=== PATIENT | female | born 1975 | race Caucasian/White ===

== ENCOUNTER 2024-12-10 22:00 | HOS | payer OTHER, MEDICARE, SELFPAY ==
--- OUTSIDE RECORDS SUMMARY | 2024-12-10 21:52 | XMS_ITS | Encounter Summary ---
Author Organization [employer] Address 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 Gender Identity Not on file Sexual Orientation Not on file documented as of this encounter Plan of Treatment Not on file documented as of this encounter Procedures Procedure Name Priority Date/Time Associated Diagnosis Comments BLOOD GAS CORD VENOUS Routine 01/13/2005 3:34 PM CDT BLOOD GAS CORD ARTERIAL Routine 01/13/2005 3:34 PM CDT HEPATITIS B SURFACE ANTIGEN Routine 01/13/2005 1:03 PM CDT CBC WITH DIFFERENTIAL Routine 01/13/2005 8:45 AM CDT CBC WITH DIFFERENTIAL Routine 01/13/2005 8:45 AM CDT URINALYSIS W/REFLEX MICROSCOPIC Routine 01/13/2005 6:50 AM CDT documented in this encounter Results * (ABNORMAL) BLOOD GAS CORD VENOUS (01/13/2005 3:34 PM CDT) PH CORD VENOUS 7.37 7.23 - 7.46 INTERFACE SYSTEM PCO2 CORD VENOUS 36 28 - 57 mm Hg INTERFACE SYSTEM PO2 CORD VENOUS 43(H) 15 - 42 mm Hg INTERFACE SYSTEM SO2 CORD VISHAL 93(H) 14 - 75 % INTERFA CE SYSTEM FO2HB CORD VENOUS 90(L) 94 - 98 % INTERFACE SYSTEM HCO3 CORD VENOUS 20 17 - 25 mmol/L INTERFACE SYSTEM BASE EXCESS CORD VENOUS -4.1 -5.8 - 0.7 mmol/L INTERFACE SYSTEM HEMOGLOBIN CORD VENOUS 14.9 14.5 - 22.5 g/dL INTERFACE SYSTEM 01/13/2005 3:34 PM CDT Historical Provider ABG ORDERABLES Final Result INTERFACE SYSTEM Refer to clinic/hospital department * (ABNORMAL) BLOOD GAS CORD ARTERIAL (01/13/2005 3:34 PM CDT) PH CORD ARTERIAL 7.34 7.14 - 7.40 INTERFACE SYSTEM PCO2 CORD ARTERIAL 43 32 - 69 mm Hg INTERFACE SYSTEM PO2 CORD ARTERIAL 34(H) 8 - 33 mm Hg INTERFACE SYSTEM SO2 CORD ARTERIAL 77(H) 5 - 59 % INTERFACE SYSTEM FO2HB CORD ARTERIAL 75(L) 94 - 98 % INTERFACE SYSTEM HCO3 CORD ARTERIAL 22 16 - 27 mmol/L INTERFACE SYSTEM BASE EXCESS CORD ARTERIAL -3.4 -7.6 - 1.3 mmol/L INTERFACE SYSTEM HEMOGLOBIN CORD ARTERIAL 15.3 14.5 - 22.5 g/dL INTERFACE SYSTEM 01/13/2005 3:34 PM CDT us Historical Provider ABG ORDERABLES Final Result INTERFACE SYSTEM Refer to clinic/hospital department * HEPATITIS B SURFACE ANTIGEN (01/13/2005 1:03 PM CDT) HEPATITIS B SURFACE AG Nonreactive Nonreactive INTERFACE SYSTEM Comment: Performed by [facility]. Results called to Penny at 01/13/2005 3:02 PM and read back verified. 01/13/2005 1:03 PM CDT Historical Provider CHEMISTRY ORDERABLES Final R esult Performing Organization Address City/State/[facility] Co de Phone Number INTERFACE SYSTEM Refer to clinic/hospital department * (ABNORMAL) CBC WITH DIFFERENTIAL (01/13/2005 8:45 AM CDT) NEUTROPHIL ABSOLUTE 9.84(H) 1.90 - 7.00 K/uL INTERFACE SYSTEM LYMPHOCYTE ABSOLUTE 0.75 0.70 - 4.50 K/uL INTERFACE SYSTEM MONOCYTE ABSOLUTE 0.00(L) 0.10 - 1.30 K/uL INTERFACE SYSTEM EOSINOPHIL ABSOLUTE 0.00 0.00 - 0.70 K/uL INTERFACE SYSTEM BASOPHILS ABSOLUTE 0.11 0.00 - 0.20 K/uL INTERFACE SYSTEM NEUTROPHILS, SEG 89(H) 45 - 70 % INT ERFACE SYSTEM BANDS 3 0 - 5 % INTERFACE SYSTEM LYMPHOCYTES 6(L) 16 - 45 % INTERFAC E SYSTEM MONOCYTES 0(L) 3 - 13 % INTERFACE SYSTEM EOSINOPHILS 0 0 - 7 % INTERFAC E SYSTEM BASOPHILS 1 0 - 2 % INTERFACE SYSTEM ATYPICAL LYMPHOCYTE 1 0 - 5 % INTERFACE SYSTEM PLATELET EST. Normal Normal INTERF DEBORAH SYSTEM RBC MORPHOLOGY Normal Normal INTER FACE SYSTEM 01/13/2005 8:45 AM CDT Historical Provider HEMATOLOGY ORDERABLES Final Result Performing Organization Address [facility] Phone Number INTERFACE SYSTEM Refer to clinic/hospital department * (ABNORMAL) CBC WITH DIFFERENTIAL (01/13/2005 8:45 AM CDT) WBC 10.7(H) 4.0 - 9.8 K/uL INTERFACE SYSTEM RBC 3.53(L) 3.90 - 4.90 M/uL INTERFACE SYSTEM HEMOGLOBIN 11.1(L) 11.8 - 14.8 g/dL INTERFACE SYSTEM HEMATOCRIT 33.1(L) 35.5 - 44.0 % INTERFACE SYSTEM MCV 93.8 82.0 - 99.0 fL INTERFACE SYSTEM MCH 31.4 27.2 - 32.6 pg INTERFACE SYSTEM MCHC 33.5 31.5 - 35.5 % INTERFACE SYSTEM RDW 13.4 11.5 - 14.5 % INTERFACE SYSTEM RDW-STDEV 45.6 37.1 - 48.7 fL INTERFACE SYSTEM PLATELETS 236 140 - 350 K/uL INTERFACE SYSTEM MPV 9.9 9.3 - 12.4 fL INTERFACE SYSTEM 01/13/2005 8:45 AM CDT us Historical Provider HEMATOLOGY ORDERABLES Final Result Performing Organization Address City/[facility] Phone Number INTERFACE SYSTEM Refer to clinic/hospital department * URINALYSIS (01/13/2005 6:50 AM CDT) COLOR UA Yellow INTERFACE SYSTEM CLARITY UA Clear Clear INTERFACE SYSTEM SPECIFIC GRAVITY UA 1.020 1.001 - 1.035 INTERFACE SYSTEM PH UA 7.0 5.0 - 8.0 INTERFACE SYSTEM LEUKOCYTE ESTERASE UA Negative Negative INTERFACE SYSTEM NITRITE UA Negative Negative INTERFACE SYSTEM PROTEIN UA Negative Negative INTERFACE SYSTEM GLUCOSE UA Negative Negative INTERFACE SYSTEM KETONES UA Negative Negative INTERFACE SYSTEM UROBILINOGEN UA <1 <1 EU INTE RFACE SYSTEM BILIRUBIN UA Negative Negative INTERFA CE SYSTEM BLOOD UA Negative Negative INTERFACE SYSTEM 01/13/2005 6:50 AM CDT us Historical Provider URINE ORDERABLES Final Resul t Performing Organization Address City/[facility] Phone Number INTERFACE SYSTEM Refer to clinic/hospital department documented in this encounter Visit Diagnoses Diagnosis Premature rupture of membranes in , delivered- Primary documented in this encounter
--- OUTSIDE RECORDS SUMMARY | 2024-12-10 21:52 | XMS_ITS | Clinical Summary ---
Author Organization [facility] Address [address] [facility] Attn: Epic Prelude ADT ANNETTE TIJERINA [address] Care Team Providers Care Milk Delivery Driver Name Role Phone Unavailable Primary Care Provider Unavailabl e Allergies Active Allergy Reactions Criticality Noted Date Comments Cefaclor Rash Low 02/29/2016 Medications melatonin 5 mg Tablet Take 5 mg by mouth 1 time daily as needed. Active loperamide (IMODIUM) 2 mg Tablet Take 2 mg by mouth. Active clonazePAM (KlonoPIN) 1 mg tablet Take 1 mg by mouth. Active venlafaxine HCl (EFFEXOR XR ORAL) Take 187.5 mg by mouth daily. Active diphenhydramine HCl (BENADRYL ORAL) Take 50 mg by mouth every 6 hours as needed. 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 Gender Identity Not on file Sexual Orientation Not on file Last Filed Vital Signs Vital Sign Reading Time Taken Comments Blood Pressure 117/72 02/29/2016 5:17 PM CDT Pulse - - Temperature 36.6 C (97.8 F) 02/29/2016 5:17 PM CDT Respiratory Rate 18 02/29/2016 5:17 PM CDT Oxygen Saturation - - Inhaled Oxygen Concentration - - Weight 73 kg (161 lb) 02/29/2016 5:17 PM CDT Height 165.1 cm (5' 5 ) 02/29/2016 5:17 PM CDT Body Mass Index 26.79 02/29/2016 5:17 PM CDT Plan of Treatment Health Maintenance Due Date Last Done Comments DTAP/TDAP/TD VACCINES (1 - Tdap) 1995 HEPATITIS B VACCINES (1 of 3 - 19+ 3-dose series) 06/17 HPV/Cotest (21-29) 1997 CERVICAL CANCER SCREENING 2006 HPV/Cotest (30-65) 2006 PAP SMEAR 2006 BREAST CANCER SCREENING 2016 COLORECTAL SCREENING 2021 Colorectal Cancer Screening 2021 FIT-DNA Q 3 years 2021 FIT/FOBT Q 1 year 2021 Flex Sig/CT Colonography Q 5 years 2021 INFLUENZA VACCINE (#1) 2024
--- OUTSIDE RECORDS SUMMARY | 2024-12-10 21:52 | XMS_ITS | Clinical Summary ---
Author Organization [facility] Address [address] [place] [address] Care Team Providers Care Stuffed Casing Tier Name Role Phone Denise Kamara MD Primary Care Provider [phone] Gino Dacosta MD Unavailable Allergies Active Allergy Reactions Criticality Noted Date Comments Cefaclor Rash Medium 02/29/2016 Reaction: RASH, Medications amLODIPine (NORVASC) 5 mg tabletIndications :hypertension Take 1 tablet (5 mg total) by mouth nightly 0 9 Active venlafaxine XR (EFFEXOR-XR) 150 mg 24 hr capsuleIndication s:Anxiety with Depression Take 2 capsules (300 mg total) by mouth every morning 2 9 Active traZODone (DESYREL) 150 mg tabletIndications :insomnia associated with depression Take 1 tablet (150 mg total) by mouth nightly 1 Active acetaminophen 500 mg capsule Take 2 capsules (1,000 mg total) by mouth every 6 (six) hours 30 tablet 2 Active Additional Information Patient taking differently:1,000 mg oral Every 6 hours scheduled,Indications: Pain, Informant: Self, Reported on 03/31/2024 prochlorperazine (Compazine) 10 mg tabletIndications :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,Secondary malignant neoplasm of brain (HCC) Take 1 tablet (10 mg total) by mouth every 6 (six) hours as needed for nausea or vomiting Use first for nausea 120 tablet 3 2 Active clonazePAM (KlonoPIN) 0.5 mg tabletIndications :sleep Take 1 tablet (0.5 mg total) by mouth nightly as needed (sleep) 2 Active methylphenidate HCl (RITALIN) 10 mg tabletIndications :Attention-Defici t Hyperactivity Disorder Take 3 tablets (30 mg total) by mouth 2 (two) times a day 3 Active capecitabine (XELODA) 500 mg tabletIndications :metastatic breast carcinoma Take 3 tablets (1,500 mg) by mouth 2 (two) times a day Indications: metastatic breast carcinoma. Take for 7 days, hold for 7 days and repeat. 84 tablet 11 4 Active mirtazapine (REMERON) 7.5 mg tabletIndications :major depressive disorder Take 1 tablet (7.5 mg total) by mouth nightly at bedtime. 4 Active melatonin 5 mg tabletIndications :sleep Take 1 tablet (5 mg total) by mouth nightly Active famotidine (PEPCID) 20 mg tabletIndications :Prevention of Stress Ulcer Take 1 tablet (20 mg total) by mouth 2 (two) times a day 60 tablet 11 4 025 Active senna-docusate (PERICOLACE) 8.6-50 mg Take 1 tablet by mouth daily 60 tablet 4 Active oxyCODONE (ROXICODONE) 5 mg immediate release tabletIndications :Pain Take 1 tablet (5 mg total) by mouth every 4 (four) hours as needed for pain 28 tablet 4 Active Active Problems Problem Noted Date Diagnosed Date Malignant neoplasm of overla pping sites of right female breast 08/12/2022 Malignant neoplasm metastatic to brain 2 Cerebellar mass 07/14/2022 Malignant neoplasm of overla pping sites of right female breast 10/02/2021 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 Symptoms have been stable over this time. Based on lack of progression and negative serological workup, it is very unlikely that this represents vasculitis. Immunosuppression in this patient with cancer should be avoided unless absolutely necessary. -Will monitor for progression on follow up CT scheduled for July -Could consider vascular surgery consult if symptoms of post-prandial nausea and abdominal pain become bothersome. The patient is not desiring invasive procedures at this time. Secondary malignant neoplasm of brain 05/11/2019 Chemotherapy management, encounter for 6 Primary malignant neoplasm of breast with metast asis 02/25/2016 Resolved Problems Problem Noted Date Diagnosed Date Resolved Date Renal artery stenosis 06/04/20212020 Immunizations Immunization Administration Dates Next Due Pfizer SARS-CoV-2 Monovalent Vaccination (12+ Yrs) PURPLE 03/21/2021,02/27/2021 Surgical History Surgery Date Site/Laterality Comments CHOLECYSTECTOMY 08/17/2006 - 08/16/2007 BRAIN SURGERY KNEE SURGERY 1993, 1994, 1995 Left TONSILECTOMY, ADENOIDECTOMY, BILATERAL MYRINGOTOMY AND TUBES 08/17/1984 - 08/16/1985 N/A PORTACATH PLACEMENT 01/16/2016 - 02/14/2016 Right MASTECTOMY Bilateral Medical History Medical History Date Comments Breast cancer (HCC) Hypertension Brain cancer (HCC) brain metasta ses Anxiety Depression Arthritis Family History Medical History Relation Name Comments Heart disease Father Hypertension Father Prostate cancer Father Family histo ry of malignant neoplasm of prostate - (Added by TW Conv) Cancer Maternal Grandmother Hypertension Maternal Grandmother Deep vein thrombosis Mother Hypertension Mother Stroke Paternal Grandfather Anesthesia problems Neg Hx Relation Name Status Comments Father Maternal Grandmother Mother Paternal Grandfather Social History Tobacco Use Types Packs/Day Years Used Date Smoking Tobacco: Every Day Cigarettes 0.4 33.3 Started: 1991 Smokeless Tobacco: Never Tobacco Cessation:Ready to Q uit: Not Asked; Counseling Given: Yes Alcohol Use Standard Drinks/Week Comments Never 0 (1 standard drink = 0.6 oz pur e alcohol) AUDIT-C Answer Date Recorded Q1: How often do you have a drink containing alcohol? Never 04/05/2024 Q2: How many drinks containi ng alcohol do you have on a typical day when you are drinking? Patient does not drink Q3: How often do you have si x or more drinks on one occasion? Never 04/05/2024 Personal Safety Answer Date Recorded Have you ever been in or are you currently in a harmful physical or emotional relationship or is someone making you feel afraid or unsafe? 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 Gender Identity Female 05/11/2023 10:02 AM CDT Sexual Orientation Not on file Obstetrics History Last Filed Vital Signs Vital Sign Reading Time Taken Comments Blood Pressure 118/73 04/06/2024 9:00 AM CDT Pulse 71 04/06/2024 9:00 AM CDT Temperature 36.6 C (97.9 F) 04/06/2024 2:01 PM CDT Respiratory Rate 19 04/06/2024 9:00 AM CDT Oxygen Saturation 97% 04/06/2024 9:00 AM CDT Inhaled Oxygen Concentration - - Weight 79 kg (174 lb 2.6 oz) 04/05/2024 3:50 PM CDT Height 163.8 cm (5' 4.5 ) 04/05/2024 3:50 PM CDT Body Mass Index 29.43 04/05/2024 3:50 PM CDT Plan of Treatment Health Maintenance Due Date Last Done Comments Breast Cancer Screening-Mammogram 1976 Cervical Cancer Screening 1976 Colon Cancer Screening-Colonoscopy 1976 Depression Screening 1976 Hepatitis C Screening 1976 DTaP/Tdap/Td Vaccine (1 - Tdap) 1987 Hepatitis B Screening 1994 Regular Well Visit/Exam 18-64 1994 Pneumococcal vaccine <65 (1 of 2 - PCV) 1995 Zoster Vaccine (1 of 2) 1995 Covid-19 Vaccine (3 - Pfizer risk series) 04/18/2021 03/21/2021, 02/27/2021 Influenza Vaccine (#1) 2024 Medical Devices Implanted Type Area Counter Pocket Sewer Device Identifier Shelf Expiration Date Model / Serial / Lot Vascular Access Power Port Implanted:Qty: 1 Right: Chest Wall Insurance MEDICARE MEDICARE [employer] MANAGED MEDICARE GENERIC RISK OTHER [employer] [place] MEDICARE Advance Directives For more information, please contact: [phone] * Full Code (Latest Code Status on File) Date Activated Date Inactivated Comments 07/14/2022 11:11 AM 07/15/2022 9:41 PM Care Teams Stuffed Casing Tier Relationship Specialty Start Date End Date Denise Kamara MD PCP - General 10/01/16 Gino Dacosta MD [address] [facility] [address] [place] [address] Radiation Oncologist Radiation Oncology 12/09/22
--- OUTSIDE RECORDS SUMMARY | 2024-12-10 21:52 | XMS_ITS | Encounter Summary ---
Author Organization [facility] Healthcare Address [address] [place] [address] Care Team Providers Care Field Crew Chief Name Role Phone Denise Kamara MD Primary Care Provider [phone] Jennifer Magdaleno RN Unavailable Jennifer Magdaleno RN Unavailable Gino Dacosta MD Unavailable Jennifer Magdaleno RN Unavailable Gaviota Miranda RN Unavailable [phone] Encounter Details Date Type Department Care Team (Late st Contact Info) Description 12/24/2021 Telephone [facility] Radiology [address] [place], [place] [id number] Josemanuel Romeo MD PhD [address] [facility] [address] [place] [address] Social History Tobacco Use Types Packs/Day Years Used Date Smoking Tobacco: Every Day Cigarettes 0.5 33.3 Started: 1991 Smokeless Tobacco: Never Alcohol Use Standard Drinks/Week Comments Never 0 (1 standard drink = 0.6 oz pur e alcohol) AUDIT-C Answer Date Recorded Q1: How often do you have a drink containing alc ohol? Monthly or less 08/20/2021 Q2: How many drinks containi ng alcohol do you have on a typical day when you are drinking? 1 or 2 08/20/2021 Q3: How often do you have si x or more drinks on one occasion? 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 Gender Identity Female 05/11/2023 10:02 AM CDT Sexual Orientation Not on file documented as of this encounter Plan of Treatment Not on file documented as of this encounter Visit Diagnoses Not on filedocumented in this encounter Care Teams Field Crew Chief Relationship Specialty Start Date End Date Denise Kamara MD PCP - General 10/01/16 Jennifer Magdaleno RN [address] [place] [address] Nurse Navigator 12/27/21 02/09/22 Jennifer Magdaleno RN [address] [place] [address] Nurse Navigator 06/19/22 08/22/22 Gino Dacosta MD [address] [facility] [address] [place] [address] Radiation Oncologist Radiation Oncology 12/09/22 Jennifer Magdaleno RN [address] [place] [address] Nurse Navigator 03/28/24 05/01/24 Gaviota Miranda RN [address] [place] [address] Nurse Navigator 03/28/24 03/31/24 documented as of this encounter
--- OUTSIDE RECORDS SUMMARY | 2024-12-10 21:52 | XMS_ITS | Clinical Summary ---
Author Organization [facility] Address [address] [place] [address] Care Team Providers Care Fish Smoker Name Role Phone Unavailable Primary Care Provider Unavailabl e Social History Tobacco Use Types Packs/Day Years Used Date Smoking Tobacco: Never Assessed Comments Unknown Sex and Gender Information Value Date Recorded Sex Assigned at Not on file Legal Sex Female 3:55 PM CDT Gender Identity Not on file Sexual Orientation Not on file Plan of Treatment Health Maintenance Due Date Last Done Comments Cervical Cancer Screening Pa p Smear (Age 30 to 64) Every 3 Years 1976 Colorectal Cancer Screening Colonoscopy (10 Years) 1976 Annual Physical 1979 Hepatitis C 1994 DTaP, Tdap and Td Vaccines ( 1 - Tdap) 1995 Hepatitis B Vaccines (1 of 3 - 19+ 3-dose series) 1995 Cervical Cancer Screening Pa p with HPV Testing (Age 30 to 64) Every 5 Years 2006 Cervical Cancer Screening with HPV 2006 Mammogram Screening 2016 COVID-19 Vaccine (2023-2 5 season) 2024 Meningococcal B Vaccine Aged Out No l onger eligible based on patient's age to complete this topic Meningococcal Vaccine Aged Out No ladarius austin eligible based on patient's age to complete this topic Pneumococcal Vaccine: Pediat rics (0 to 5 Years) and At-Risk Patients (6 to 49 Years) Aged Out No longer eligible b ased on patient's age to complete this topic RSV Immunizations Under 20 Months Aged Out No longer eligible based on patient's age to complete this topic Insurance [facility] MEDICARE MEDICAID
--- OUTSIDE RECORDS SUMMARY | 2024-12-10 21:52 | XMS_ITS | Referral Summary ---
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 Gender Identity Female 05/11/2023 10:02 AM CDT Sexual Orientation Not on file Last Filed [...] 04/05/2024 3:50 PM CDT Plan of Treatment Not on file Medical Devices Implanted Type Area Machine Gunner Device Identifier Shelf Expiration Date Model / Serial / Lot Vascular Access Power Port Implanted:Qty: 1 Right: Chest Wall Insurance [facility] MANAGED MEDICARE GENERIC RISK OTHER [facility] Member Subscriber Plan / Payer (Ef fective 2021-Present) Name:Maylin Haddad Relation to Subscriber:Self Name:Maylin Haddad Payer ID:[id number] (NAIC) Type:MEDICARE RISK OTHER Address: [address] OF [place] MEDICARE MEDICARE Advance Directives For more information, please contact: [phone] * Full Code (Latest Code Status on File) Date Activated Date Inactivated Comments 07/14/2022 11:11 AM 07/15/2022 9:41 PM Care Teams Senior Buyer Relationship Specialty Start Date End Date Denise Kamara MD PCP - General 10/01/16 Gino Dacosta MD [address] [facility] [address] [place] [address] Radiation Oncologist Radiation Oncology 12/09/22
--- OUTSIDE RECORDS SUMMARY | 2024-12-10 21:52 | XMS_ITS | Encounter Summary ---
Author Organization [facility] Address [address] [place] [address] Phone Care Team Providers Care Alternative Financing Specialist Name Role Phone Denise Kamara MD Primary Care Provider [phone] Jennifer Magdaleno RN Unavailable Jennifer Magdaleno RN Unavailable Gino Dacosta MD Unavailable Jennifer Magdaleno RN Unavailable Gaviota Miranda RN Unavailable [phone] Encounter Details Date Type Department Care Team (Late st Contact Info) Description 03/27/2021 Telephone [facility] Oncology [address] [facility] 7[address] [place] [address] [place] [address] Jannie Caballero Social History Tobacco Use Types Packs/Day Years Used Date Smoking Tobacco: Every Day Cigarettes 0.5 33.3 Started: 1991 Smokeless Tobacco: Never Alcohol Use Standard Drinks/Week Comments Never 0 (1 standard drink = 0.6 oz pur e alcohol) AUDIT-C Answer Date Recorded Frequency of Alcohol Consumption Never 05/11/2019 Average Number of Drinks Not on file 019 Frequency of Binge Drinking Not on file 04/18 Comments No Sex and Gender Information Value Date Recorded Sex Assigned at Not on file 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 Gender Identity Female 05/11/2023 10:02 AM CDT Sexual Orientation Not on file documented as of this encounter Plan of Treatment Not on file documented as of this encounter Visit Diagnoses Not on filedocumented in this encounter Care Teams Alternative Financing Specialist Relationship Specialty Start Date End Date Denise Kamara MD PCP - General 10/01/16 Jennifer Magdaleno RN [address] [place] [address] Nurse Navigator 12/27/21 02/09/22 Jennifer Magdaleno RN [address] [place] [address] Nurse Navigator 06/19/22 08/22/22 Gino Dacosta MD [address] [facility] [address] [place] [address] Radiation Oncologist Radiation Oncology 12/09/22 Jennifer Magdaleno RN [address] [place] [address] Nurse Navigator 03/28/24 05/01/24 Gaviota Miranda, [address] [place] [address] Nurse Navigator 03/28/24 03/31/24 documented as of this encounter
--- OUTSIDE RECORDS SUMMARY | 2024-12-10 21:52 | XMS_ITS | Data Portability ---
Author Organization [facility], [address] Neurology (NE) Address [address] 4th [place] [address] Care Team Providers Care Dean Of Faculty Name Role Phone DENISE GALINDO Primary Care Provider Assessment Encounter Date Assessment Date Assessment LastModified by Organization Details LastModified Time 04/27/2024 04/27/2024 This is a 48-year-old woman with metastatic breast cancer with metastases to the liver and recurrent metastases to the brain. She has had 4 craniotomies and close to 100 treatments with IV infusions. She has been told by 1 cancer center that they have no further treatment for her. She has been down at [facility] for cancer treatment and does not want to go back. We talked about this. I will ask hospice to come and evaluate her and see if there services are appropriate for her. We talked about the fact that her choice can change at her convenience at any time. She agrees with this plan. I will see her back in 1 month for follow-up. Total time 30 minutes [email or web address] Not available 04/28/2024 00:02:53 Plan of Treatment Reminders Order Date Submit Date Provider Last Modified By Organization Details Last Modified Time Details Appointments None record ed. Lab None record ed. Referral None record ed. Procedures None record ed. Surgeries None record ed. Imaging None record ed. Medication Orders None record ed. Patient TargetsNo targets recorded. Patient InstructionsNo instructions recorded. Reason for Referral None Reported. Results Created Date Observation Date Name Description Value Unit Range Abnormal Flag Note LastModifiedBy Organization Detail LastModifiedTime 03/31/20 24 12/02/2022 imagi ng/di agnos tic resul t No observ ation record ed. [email or web address] Not Available 03/31/2024 21:06:44 12/10/19 25 08/23/2020 imagi ng/di agnos tic resul t No observ ation record ed. [email or web address] Not Available 23:48:36 12/10/19 25 01/10/2021 imagi ng/di agnos tic resul t No observ ation record ed. [email or web address] Not Available 23:48:54 Result Notes None recorded. Problems Name Problem SNOMED Code Status Onset Date Resolution Date Notes Provider Name and Address Organization Details Recorded Time Metastatic malignant neoplasm to female breast 33033831 Active 2023 [facility] 4 10:55:54 Chronic depression 151464666 Active 2023 [facility] 4 10:55:56 Attention deficit hyperactivity disorder 936759797 Active 2023 [facility] 4 11:05:38 Impairment of balance 093999719 Active 2023 [facility] 4 11:08:27 Metastatic malignant neoplasm to liver 54040082 Active 2023 [facility] 4 11:08:38 Generalized anxiety disorder 75686567 Active 2023 [facility] 4 11:08:58 Benign essential hypertension 4424897 Active 2023 [facility] 4 11:09:24 Insomnia 796879061 Active 2023 [facility] 4 11:09:36 Metastatic malignant neoplasm to brain 33940798 Active 2023 [facility] 4 11:10:58 Problem Notes None recorded. Procedures Surgical History Date Name Laterality Status Provider Name and Address Organization Details Recorded Time Removal of gallbladder completed Not Available Health Note 04/20/2024 20:36:17 Removal of tonsils completed Not Available Health Note 04/20/2024 20:36:17 radical mastectomy completed [facility] 04/27/2024 11:14:43 colposcopy completed [facility] 04/27/2024 11:16:12 craniotomy completed Denise Coronel MD [address], [address], [facility] 04/27/2024 23:56:31 Imaging Results Imaging Date Name Status LastModified by Organiz ation Details LastModified Time 12/02/2022 imaging/diag nostic result completed [email or web address] Information not available 03/31/2024 21:06:44 08/23/2020 imaging/diag nostic result completed Information not available 12/09/2024 23:48:36 01/10/2021 imaging/diag nostic result completed Information not available 12/09/2024 23:48:54 Procedure Notes None recorded. Medical Equipment None Reported. Allergies Allergen ID Allergen Name Allergen Category Reaction Reaction Severity Criticality Documentation Date Start Date Code Code System Note Provider Name and Address Organization Details Recorded Time 983270 Ceclor medicatio n rash Not available Not available 09/14/202327243 5 RxNorm Not Available Not Available Not Available Medications Name Sig Start Date Stop Date Status Note LastModified by Organization Details LastModified Time methylpheni date 10 mg tablet TAKE 3 TABLETS BY MOUTH TWICE DAILY active Not Available Not Available No t Available clonazepam 0.5 mg tablet TAKE 1 TABLET BY MOUTH TWICE DAILY NEEDED FOR ANXIETY active Not Available Not Available No t Available venlafaxine ER 150 mg capsule,ext ended release 24 hr TAKE 2 CAPSULES BY MOUTH ONCE DAILY active Not Available Not Available No t Available amlodipine 5 mg tablet TAKE 1 TABLET BY MOUTH ONCE DAILY active Not Available Not Available No t Available potassium chloride ER 20 mEq tablet,exte nded release(par t/cryst) TAKE 1 TABLET BY MOUTH ONCE DAILY active Not Available Not Available No t Available famotidine 20 mg tablet active Not Available Not Available Not Available dexamethaso ne 1 mg tablet 04/27 completed Not Available Not Available Not Available trazodone 150 mg tablet TAKE 1 TABLET BY MOUTH AT BEDTIME NEEDED FOR SLEEP active Not Available Not Available No t Available mupirocin 2 % topical ointment APPLY OINTMENT TOPICALLY TO AFFECTED AREA TWICE DAILY - APPLY TO BOTH NARES AND START 5 DAYS PRIOR TO SURGERY AND END 1 DAY BEFORE SURGERY - 04/27 completed Not Available Not Available Not Available oxycodone 5 mg tablet 04/27 completed Not Available Not Available Not Available mirtazapine 7.5 mg tablet TAKE 1 TABLET BY MOUTH EVERY DAY AT BEDTIME active Not Available Not Available No t Available potassium chloride ER 20 mEq tablet,exte nded release TAKE 1 TABLET BY MOUTH ONCE DAILY FOR 14 DAYS 04/27 completed Not Available Not Available Not Available Tukysa 150 mg tablet 04/27 completed Not Available Not Available Not Available Vitals Date Recorded Body weight Body temperature Heart rate Oxygen saturation Oxygen saturation in Arterial blood by Pulse oximetry Systolic blood pressure Diastolic blood pressure Provider Name and Address Organization Details Last Updated DateTime 4 03197.1 9 g 97.5 [degF] 87 /min 98 % 98 % 110 mm[Hg] 78 mm[Hg] Jessica Zhu [facility] 4 16:23:10 Social History Question Answer Notes LastModified by Organizat ion Details LastModified Time Tobacco Smoking Status Current Every Day Smoker Not Available Health Note 04/20/2024 20:36:17 Do You Have An Advance Directive? No [email or web address] Information not available 04/20/2024 What Is Your Level Of Alcohol Consumption? None [email or web address] Information not available 04/20/2024 What Is Your Level Of Caffeine Consumption? Moderate [email or web address] Information not available 04/20/2024 Are You Currently Employed? No [email or web address] Information not available 04/20/2024 Which Illicit Or Recreational Drugs Have You Used? Marijuana [email or web address] Information not available 04/20/2024 What Is Your Occupation? SSI - Disabled [email or web address] Information not available 04/20/2024 How Many Times Per Week Do You Exercise? Less Than 1 Time Per Week [email or web address] Information not available 04/20/2024 E-cigarettes Or Vaporization Device? Uses Non-nicotine Containing Device [email or web address] Information not available 04/20/2024 How Many Packs Per Day (PPD)? 1/2 Pack Per Day [email or web address] Information not available 04/20/2024 How Long Have You Smoked? Since I Was 14yrs [email or web address] Information not available 04/20/2024 Do You Have A Medical Power Of Pv Design Engineer? No [email or web address] Information not available 04/20/2024 What Was The Date Of Your Most Recent Tobacco Screening? 04/27/2024 [email or web address] Information not available 04/20/2024 What Is Your Relationship Status? [email or web address] Information not available 04/20/2024 Do You Use Any Illicit Or Recreational Drugs? Yes [email or web address] Information not available 04/20/2024 Sex: Unknown Functional Status Question Answer Note LastModified by Organization D etails LastModified Time What is your exercise level? None [email or web address] Information not available 04/20/2024 Mental Status None recorded. Family History Relationship Description Onset Age of this Age Resolved Age Notes LastModified by Organization Details LastModified Time Mother Attention deficit hyperactivit y disorder [email or web address] Not available 04/20 20:36:16 Mother Arthritis [email or web address] Not available 04/20/2024 20:36:16 Mother Family history of malignant neoplasm [email or web address] Not available 2023 20:36:16 Mother Hypertensive disorder [email or web address] Not available 2023 20:36:16 Mother Hypercholest erolemia [email or web address] Not available 2023 20:36:16 Son Attention deficit hyperactivit y disorder [email or web address] Not available 04/20 20:36:16 Maternal Grandfather Alzheimer's disease [email or web address] Not available 2023 20:36:16 Maternal Grandfather Arthritis [email or web address] Not available 11/2023 20:36:16 Maternal Grandfather Family history of malignant neoplasm [email or web address] Not available 2023 20:36:16 Maternal Grandmother Arthritis [email or web address] Not available 11/2023 20:36:16 Maternal Grandmother Family history of malignant neoplasm [email or web address] Not available 2023 20:36:16 Maternal Grandmother Hypertensive disorder [email or web address] Not available 2023 20:36:16 Maternal Grandmother Hypercholest erolemia [email or web address] Not available 2023 20:36:16 Father Family history of malignant neoplasm [email or web address] Not available 2023 20:36:16 Father Heart disease [email or web address] Not available 2023 20:36:16 Father Hypertensive disorder [email or web address] Not available 2023 20:36:16 Brother Family history of malignant neoplasm [email or web address] Not available 2023 20:36:16 Paternal Grandfather Heart disease [email or web address] Not available 2023 20:36:16 Paternal Grandfather Cerebrovascu lar accident [email or web address] Not available 11/2023 20:36:16 Medical History Condition Response High Blood Pressure Y COPD N Depression Y Anxiety Disorder Y Arthritis N Cancer Y Stroke N Fibromyalgia N Kidney Disease N Bleeding Disorder N Asthma N Seizures N Attention-deficit Hyperactivity Disorder Y Thyroid Problems N Anemia N Diabetes N Hyperlipidemia N Heart Disease N Osteoporosis N Gynecological HistoryNo gynecological history recorded. Obstetrics History GPAL:G 0 P 0 0 0 0 Immunizations Vaccine Type Date Status Note Provider Nam e and Address Organization Details Recorded Time COVID-19, mRNA, LNP-S, PF, 30 mcg/0.3 mL dose 07/05/2021 completed [facility] 04/27/2024 16:23:16 Past Encounters Encounter ID Performer Location Encounter Start Date Encounter Closed Date Diagnosis/Indication Diagnosis SNOMED-CT Code Diagnosis ICD10 Code Diagnosis Note [id number] MD [facility] ([place]) [facility] [place] [address] 04/07/2024 18:33:22 04/13/2024 20:58:23 Chronic depression 906237105 F32.A Metastatic malignant neoplasm to female breast 78195889 C79.81 [id number] MD [facility] N [facility] [place] [address] 04/27/2024 15:55:54 04/27/2024 17:48:40 Chronic depression 505378390 F32.A Metastatic malignant neoplasm to brain 84478184 C79.31 Metastatic malignant neoplasm to liver 55926250 C78.7 Metastatic malignant neoplasm to female breast 30410801 C79.81 Health Concerns Section Related Observation LastModified by Organization Detai ls LastModified Time None Recorded Concern Status LastModified by Organization Details LastModified Time None Recorded Advance Directives Directive N: Payers Encounter Date Sequence Insurance Name Policy Number Policy Hall Covered Member ID Hall Member ID Guarantor Name 04/07/2024 1 [place] Maylin Haddad [id number] Maylin Souza Boo 04/07/2024 2 [place] [facility] Maylin Haddad [id number] Maylin Haddad 04/27/2024 1 [place] Maylin Souza Boo [id number] Maylin Souza Boo 04/27/2024 2 [place] [facility] Maylin Haddad [id number] Maylin Haddad Notes Date Note Type Note Provider Name and Address Organization Details Recorded Time 4 text/html I was asked by Maylin's family to go and see her. She has metastatic breast cancer with breast cancer to the brain. On Thursday of this week she had brain surgery and is back at home. Her mother is very concerned as Maylin seems quite agitated. I went to Maylin's home and spoke with her for an hour and a half. She expressed her concerns her frustrations with her cancer and with her life. She is financially assisted by her parents however she is living on [facility]. She is somewhat estranged from her parents and her children. Her friends have been supportive but they do not come around as much. She did receive a high dose of dexamethasone to help with the radiation treatment that she had. She is alert and oriented. She is unsteady on her feet. Her speech is somewhat pressured. She makes a good eye contact. She is tearful talking about her situation. I think that the dexamethasone she received is causing her to be quite agitated angry and anxious currently. It has affected her sleep. I am going to drop bynex t week to see how she is doing. She agrees with this plan. Total time 90 minutes Denise Coronel MD [address] [place] [address], [phone], [facility] 04/09/2024 15:53:46 4 text/html Maylin Haddadis a 48 year oldfemalepresenting for care. She has metastatic breast cancer with metastases to the liver and to the brain. She has had 4 craniotomies most recently last month to treat recurring brain cancers. She has gone through multiple rounds of chemotherapy and infusions. She is ready to be done with this. Is frustrated with her life. She is not able to do the things she wants. She feels somewhat alienated from her family and that they do not understand. She has financial limitations due to the fact that she cannot work and is wiped out by her cancer treatments. I had talked with her 2 to 3 weeks ago at her home after her brain cancer surgery. She was quite anxious and agitated at that time. She had been on a lot of steroids for her surgery. The steroid effect has worn off. She has thought about it and she wants to consider hospice. She does not wish to do any further treatments for her breast cancer. She wants to have quality and quantity of time. Her brain surgeries and her treatments have left her with poor balance. She finds it easy to fall. She has poor appetite and sometimes nausea and diarrhea. She has tremors and incoordination of movement of her extremities so that she cannot even write checks. Denise Coronel MD [address] [place] [address], [phone], [facility] 04/28/2024 00:05:03 OBGyn Episode No OBEpisode recorded.
--- OUTSIDE RECORDS SUMMARY | 2024-12-10 21:52 | XMS_ITS | Clinical Summary ---
Author Organization [facility] Address [address] [place] [address] Phone Care Team Providers Care Valve Steamer Name Role Phone Unavailable Primary Care Provider Unavailabl e Allergies Active Allergy Reactions Criticality Noted Date Comments Cefaclor Rash Low 02/29/2016 Medications VENLAFAXINE HCL (EFFEXOR XR ORAL) Take 187.5 mg by mouth daily. Active HYDROcodone-kim taminophen (NORCO) 10-325 mg Tablet Take 1 Tablet by mouth every 6 hours as needed for Pain, Moderate. Active clonazePAM (KLONOPIN) 1 mg tablet Take 1 mg by mouth Continuous as needed for Anxiety. Active melatonin 5 mg Tablet Take 5 mg by mouth nightly as needed. Active diphenhydrAMINE (BENADRYL) 50 mg Tablet Take 50 mg by mouth every 6 hours as needed for Allergies. Active loperamide (IMODIUM) 2 mg Tablet Take 2 mg by mouth Continuous as needed for Diarrhea/Loose Stools. Active acetaminophen-c affeine-butalbi rebecca (FIORICET) 325-40-50 mg tablet Take 1 Tablet by mouth every 4 hours as needed for Headaches. 20 Tablet None 6 Active ondansetron (ZOFRAN ODT) 4 mg Tablet, Rapid Dissolve Place 1 Tablet (4 mg) under tongue every 8 hours as needed for Nausea. 20 Tablet 0 6 Active Social History Tobacco Use Types Packs/Day Years Used Date Smoking Tobacco: Every Day Cigarettes 0.5 20 Tobacco Cessation:Ready to Q uit: No Alcohol Use Standard Drinks/Week Comments No 0 (1 standard drink = 0.6 oz pur e alcohol) Comments Unknown Sex and Gender Information Value Date Recorded Sex Assigned at Not on file Legal Sex Female 5:15 PM CDT Gender Identity Not on file Sexual Orientation Not on file Last Filed Vital Signs Vital Sign Reading Time Taken Comments Blood Pressure 117/72 02/29/2016 5:17 PM CDT Pulse - - Temperature 36.6 C (97.8 F) 02/29/2016 5:17 PM CDT Respiratory Rate 18 02/29/2016 5:17 PM CDT Oxygen Saturation 95% 02/29/2016 5:17 PM CDT Inhaled Oxygen Concentration - - Weight 73 [...]
--- OUTSIDE RECORDS SUMMARY | 2024-12-10 21:52 | XMS_ITS | Encounter Summary ---
Author Organization [facility] Address [address] [place] [address] Phone Care Team Providers Care Procurement Engineer Name Role Phone Denise Kamara MD Primary Care Provider [phone] Gino Dacosta MD Unavailable Jennifer Magdaleno RN Unavailable Gaviota Miranda RN Unavailable [phone] Encounter Details Date Type Department Care Team (Late st Contact Info) Description 02/27/2023 Orders Only [facility] Oncology [address] [facility] Advanced Medicine 7th [place] [address] [place] [address] Gudelia Weathers MD [address] [facility] [address] [place] [address] Social History Tobacco Use Types Packs/Day Years Used Date Smoking Tobacco: Every Day Cigarettes 0.4 33.3 Started: 1990 Smokeless Tobacco: Never Alcohol Use Standard Drinks/Week Comments Never 0 (1 standard drink = 0.6 oz pur e alcohol) AUDIT-C Answer Date Recorded Q1: How often do you have a drink containing alcohol? Never 07/14/2022 Q2: How many drinks containi ng alcohol do you have on a typical day when you are drinking? Patient does not drink Q3: How often do you have si x or more drinks on one occasion? 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 Gender Identity Female 05/11/2023 10:02 AM CDT Sexual Orientation Not on file documented as of this encounter Plan of Treatment Not on file documented as of this encounter Visit Diagnoses Not on filedocumented in this encounter Care Teams Procurement Engineer Relationship Specialty Start Date End Date Denise Kamara MD PCP - General 10/01/16 Gino Dacosta MD [address] [facility] [address] [place] [address] Radiation Oncologist Radiation Oncology 12/09/22 Jennifer Magdaleno RN [address] [place] [address] Nurse Navigator 03/28/24 05/01/24 Gaviota Miranda RN [address] [place] [address] Nurse Navigator 03/28/24 03/31/24 documented as of this encounter
--- OUTSIDE RECORDS SUMMARY | 2024-12-10 21:52 | XMS_ITS ---
Author Organization [facility] Address [address] [place] [address] Care Team Providers Care Poultry Processor Name Role Phone Densie Kamara MD Primary Care Provider [phone] Gino Dacosta MD Unavailable Active Problems Problem Noted Date Diagnosed Date [...] neoplasm of breast with metast asis 02/25/2016 Current Treatment and Therapy Plans IV MAINTENANCE THERAPY PLAN* Plan Start Date:11/25/2021 Plan Provider:Chucky Morales MD PhD Linked Problems Secondary malignant neoplasm of brain (HCC) Treatment Medications No medications scheduled. Tucatinib / Capecitabine / Trastuzumab 21 Day Cycles - Breast* Plan Start Date: 08/07/2022 Plan Provider:Gudelia Weathers MD Linked Problems Secondary malignant neoplasm of brain (HCC)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Malignant neoplasm of overlapping sites of right female breast, unspecified estrogen receptor status (HCC) Treatment Medications Current Day (Day 1 , Cycle 24 - Planned for 04/07/2024) Next Day (Day 1, Cycle 25 - Planned for 04/28/2024) capecitabine (XELODA)trastuzumab (HERCEPTIN)trastuzumab (HERCEPTIN) IVPBtrastuzumab-dkst (OGIVRI) IVPBtucatinib (TUKYSA) trastuzumab (HERCEPTIN) 437 mg in sodium chloride 0.9% 250 mL IVPB trastuzumab (HERCEPTIN) 437 mg in sodium chloride 0.9% 250 mL IVPB Past Treatment and Therapy Plans Oncology Chemotherapy Treatment Plan Name Start Date Discontinue Date Treatment Medications Discontinue Reason Plan Provider Cycles Bevacizumab 21 Day Cycles - Brain 2 03/12/2022 bevacizumab-aw wb (MVASI)bevaciz umab-awwb (MVASI) IVPB Therapy Complete Josemanuel Romeo MD PhD 6 of 7 cycles started Radiation Treatments * Course C2 05/26/2019 - 05/26/2019 Treatment Period Energy Fraction Dose Fractions Total Dose Plans Planned Plan_A:Tum1_R 05/26/2019 - 05/26/2019 2,000 1 / 2,000 Reference Points Delivered A:Tum1_R_Cerebel 05/26/2019 - 05/26/2019 2,000 Lifetime Dose Tracking * Chemical Lifetime Dose Automatic Entry Manual Entr y Fluoro Time 3.696 minutes 3.696 minutes 0 minutes Air kerma at the reference point (Ka,r) 27.34 mGy 2 7.34 mGy 0 mGy DLP 11,174 mGycm 11,174 mGycm 0 mGycm Resolved Problems Problem Noted Date Diagnosed Date Resolved Date Renal artery stenosis 06/04/20212020
[2024-12-10 22:08] VITALS: BMI 25.3
[2024-12-10] MEDS: LORazepam INJ (*CRX) 2 MG/ML VIAL 1 MG IV PUSH (22:38)
[2024-12-10] MEDS: HYDROmorphone HCL INJ (*CRX) 2 MG/ML VIAL 0.5 MG IV PUSH (22:38)
[2024-12-10] MEDS: HYDROmorphone HCL/PF (*CRX) 50 MG in SODIUM CHLORIDE 0.9% IV 95 ML IV CONT (22:39)
[2024-12-10] MEDS: PROCHLORPERAZINE EDISYLATE 10 MG/2 ML VIAL IV PUSH (22:39)
[2024-12-10] MEDS: dexAMETHasone SOD PHOS INJ 4 MG/ML VIAL 8 MG IV PUSH (22:39)
--- OUTSIDE RECORDS SUMMARY | 2024-12-11 03:41 | XMS_ITS | Clinical Summary ---
Author Organization [facility] Address [address] [facility] Attn: Epic Prelude ADT ANNETTE TIJERINA [address] Care Team Providers Care Respiratory Therapy Instructor Name Role Phone Unavailable Primary Care Provider [...] on file Legal Sex Female 3:11 AM DELIVERY HELPER Gender Identity Not on file Sexual Orientation [...]
--- OUTSIDE RECORDS SUMMARY | 2024-12-11 03:41 | XMS_ITS | Clinical Summary ---
Author Organization [facility] Address [address] [place] [address] Care Team Providers Care Analytical Chemistry Teacher Name Role Phone Unavailable Primary Care Provider [...] patient's age to complete this topic Insurance [facility] MEDICARE MEDICAID
--- OUTSIDE RECORDS SUMMARY | 2024-12-11 03:41 | XMS_ITS | Encounter Summary ---
Author Organization [facility] Address [address] [place] [address] Phone Care Team Providers Care Loan Review Officer Name Role Phone Denise Kamara MD Primary Care Provider [phone] Gino Dacosta MD Unavailable Jennifer Magdaleno RN Unavailable Gaviota Miranda RN Unavailable [phone] Encounter Details Date Type Department Care Team (Late st Contact Info) Description 02/27/2023 Orders Only [facility] Oncology [address] [facility] Advanced Medicine 7th [place] [address] [place] [address] Gudelia Weathers MD [address] 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 Gender Identity Female 05/11/2023 10:02 AM CDT Sexual Orientation Not on file documented as of this encounter Plan of Treatment Not on file documented as of this encounter Visit Diagnoses Not on filedocumented in this encounter Care Teams Loan Review Officer Relationship Specialty Start Date End Date Denise Kamara MD PCP - General 10/01/16 Gino Dacosta MD [address] [facility] [address] [place] [address] Radiation Oncologist Radiation Oncology 12/09/22 Jennifer Magdaleno RN [address] [place] [address] Nurse Navigator 03/28/24 05/01/24 Gaviota Miranda RN [address] [place] [address] Nurse Navigator 03/28/24 03/31/24 documented as of this encounter
--- OUTSIDE RECORDS SUMMARY | 2024-12-11 03:41 | XMS_ITS | Encounter Summary ---
Author Organization [facility] Healthcare Address [address] [place] [address] Care Team Providers Care Physician Interventional Cardiologist Name Role Phone Denise Kamara MD Primary Care Provider [phone] Jennifer Magdaleno RN Unavailable Jennifer Magdaleno RN Unavailable Gino Dacosta MD Unavailable Jennifer Magdaleno RN Unavailable Gaviota Miranda RN Unavailable [phone] Encounter Details Date Type Department Care Team (Late st Contact Info) Description 12/24/2021 Telephone [facility] Radiology [address] [place], [place] [id number] Josemanuel Romeo MD PhD [address] [facility] [address] [place] [address] Social History Tobacco Use Types Packs/Day Years [...] on file 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 Gender Identity Female 05/11/2023 10:02 AM CDT Sexual Orientation Not on file documented as of this encounter Plan of Treatment Not on file documented as of this encounter Visit Diagnoses Not on filedocumented in this encounter Care Teams Physician Interventional Cardiologist Relationship Specialty Start Date End Date Denise Kamara MD PCP - General 10/01/16 Jennifer Magdaleno RN [address] [place] [address] Nurse Navigator 12/27/21 02/09/22 Jennifer Magdaleno RN [address] [place] [address] Nurse Navigator 06/19/22 08/22/22 Gino Dacosta MD [address] [facility] [address] [place] [address] Radiation Oncologist Radiation Oncology 12/09/22 Jennifer Magdaleno RN [address] [place] [address] Nurse Navigator 03/28/24 05/01/24 Gaviota Miranda RN [address] [place] [address] Nurse Navigator 03/28/24 03/31/24 documented as of this encounter
--- OUTSIDE RECORDS SUMMARY | 2024-12-11 03:41 | XMS_ITS | Encounter Summary ---
Author Organization [facility] Address 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 Results called to Penny at 01/13/2005 3:02 PM and read back verified. 01/13/2005 1:03 PM CDT Historical Provider CHEMISTRY ORDERABLES Final R esult Performing Organization Address City/State/[facility] Co de Phone Number INTERFACE SYSTEM Refer [...] HEMATOLOGY ORDERABLES Final Result Performing Organization Address [facility] Phone Number INTERFACE SYSTEM Refer to clinic/hospital [...] HEMATOLOGY ORDERABLES Final Result Performing Organization Address City/[facility] Phone Number INTERFACE SYSTEM Refer to clinic/hospital [...] ORDERABLES Final Resul t Performing Organization Address City/[facility] Phone Number INTERFACE SYSTEM Refer to clinic/hospital department documented in this encounter Visit Diagnoses Diagnosis Premature rupture of membranes in , delivered- Primary documented in this encounter
--- OUTSIDE RECORDS SUMMARY | 2024-12-11 03:41 | XMS_ITS | Encounter Summary ---
Author Organization [facility] Address [address] [place] [address] Phone Care Team Providers Care Rocket Engine Component Mechanic Name Role Phone Denise Kamara MD Primary Care Provider [phone] Jennifer Magdaleno RN Unavailable Jennifer Magdaleno RN Unavailable Gino Dacosta MD Unavailable Jennifer Magdaleno RN Unavailable Gaviota Miranda RN Unavailable [phone] Encounter Details Date Type Department Care Team (Late st Contact Info) Description 03/27/2021 Telephone [facility] Oncology [address] [facility] 7th [place] [address] [place] [address] Jannie Caballero Social History Tobacco [...] on file 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 Gender Identity Female 05/11/2023 10:02 AM CDT Sexual Orientation Not on file documented as of this encounter Plan of Treatment Not on file documented as of this encounter Visit Diagnoses Not on filedocumented in this encounter Care Teams Rocket Engine Component Mechanic Relationship Specialty Start Date End Date Denise Kamara MD PCP - General 10/01/16 Jennifer Magdaleno RN [address] [place] [address] Nurse Navigator 12/27/21 02/09/22 Jennifer Magdaleno RN [address] [place] [address] Nurse Navigator 06/19/22 08/22/22 Gino Dacosta MD [address] [facility] [address] [place] [address] Radiation Oncologist Radiation Oncology 12/09/22 Jennifer Magdaleno RN [address] [place] [address] Nurse Navigator 03/28/24 05/01/24 Gaviota Miranda, LIUDMILA [address] [place] [address] Nurse Navigator 03/28/24 03/31/24 documented as of this encounter
--- OUTSIDE RECORDS SUMMARY | 2024-12-11 03:42 | XMS_ITS ---
Author Organization [facility] Address [address] [place] [address] Care Team Providers Care Continuous Linter Drier Operator Name Role Phone Denise Kamara MD Primary Care Provider [phone] Gino Dacosta MD Unavailable Active Problems Problem [...]
--- OUTSIDE RECORDS SUMMARY | 2024-12-11 03:42 | XMS_ITS | Referral Summary ---
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 Gender Identity Female 05/11/2023 10:02 AM [...] on file Medical Devices Implanted Type Area Forester Silviculture Device Identifier Shelf Expiration Date Model / Serial / Lot Vascular Access Power Port Implanted:Qty: 1 Right: Chest Wall Insurance [facility] MANAGED MEDICARE GENERIC RISK OTHER [facility] Member Subscriber Plan / Payer (Ef fective 2021-Present) Name:Maylin Haddad Relation to Subscriber:Self Name:Maylin Haddad Payer ID:[id number] (NAIC) Type:MEDICARE RISK OTHER Address: [address] OF [place] MEDICARE MEDICARE Advance Directives For more information, please contact: [phone] * Full Code (Latest Code Status on File) Date Activated Date Inactivated Comments 07/14/2022 11:11 AM 07/15/2022 9:41 PM Care Teams Tire Care Manager Relationship Specialty Start Date End Date Denise Kamara MD PCP - General 10/01/16 Gino Dacosta MD [address] [facility] [address] [place] [address] Radiation Oncologist Radiation Oncology 12/09/22
--- OUTSIDE RECORDS SUMMARY | 2024-12-11 03:42 | XMS_ITS | Clinical Summary ---
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 Gender Identity Female 05/11/2023 10:02 AM CDT [...] (#1) 2024 Medical Devices Implanted Type Area Jet Man Device Identifier Shelf Expiration Date Model / Serial / Lot Vascular Access Power Port Implanted:Qty: 1 Right: Chest Wall Insurance MEDICARE MEDICARE [employer] MANAGED MEDICARE GENERIC RISK OTHER [employer] [place] [facility] Address: [address] [address] MEDICARE Advance Directives For more information, please contact: [phone] * Full Code (Latest Code Status on File) Date Activated Date Inactivated Comments 07/14/2022 11:11 AM 07/15/2022 9:41 PM Care Teams Hide Sorter Relationship Specialty Start Date End Date Denise Kamara MD PCP - General 10/01/16 Gnio Dacosta MD [address] [facility] [address] [place] [address] Radiation Oncologist Radiation Oncology 12/09/22
[2024-12-11] MEDS: PROCHLORPERAZINE EDISYLATE 10 MG/2 ML VIAL IV PUSH ×4 (03:54→23:56)
[2024-12-11 05:57] VITALS: BP 120/86; PULSE 61; RESP 16; TEMP 36.7; O2SAT 98
[2024-12-11] MEDS: ARTIFICIAL TEARS OPHTH SOLN 15 ML BOTTLE 1 DROP EACH EYE ×2 (06:18→18:24)
[2024-12-11 08:00] VITALS: PULSE 61; RESP 16; O2SAT 98
[2024-12-11] MEDS: dexAMETHasone SOD PHOS INJ 4 MG/ML VIAL 8 MG IV PUSH ×2 (09:50→20:59)
[2024-12-11 14:42] VITALS: BP 129/86; PULSE 57; RESP 16; TEMP 36.2; O2SAT 97
[2024-12-11 20:00] VITALS: BP 147/91; PULSE 50; RESP 16; TEMP 36.4; O2SAT 96
--- NOTE | 2024-12-11 20:16 | P.HP_ITS ---
H&P: HPI History of Present Illness Date/Time: 12/11/24 20:16 Chief Complaint: uncontrolled nausea, emesis, pain Narrative: Maylin is a 49-year-old female who was diagnosed with breast cancer in 2016. She underwent mastectomy followed by multiple chemotherapy treatments. Cancer was never in remission. Shear she developed brain metastases and had four surgeries for those. Last surgery was about a month ago. Following that she opted for hospice care. Her symptoms of headache and nausea were controlled until the past few days. During that time she progressively worse headache with generalized photophobia and nausea with vomiting. The over 24 hours prior to admission. Since admission with scheduled IV dexamethasone and scheduled IV propofol per seen along with continuous IV hydromorphone infusion her symptoms have been well managed. She has tolerated water intake but no food. Her goal is to return home and have her symptoms controlled there. She was functioning independently prior to admission to the hospital and now that her symptoms are controlled is able it out of bed and walk to the bathroom independently. Review of Systems Review of Systems: All systems reviewed & are unremarkable except as noted in HPI and below PMFSH Past Medical History Medical History (Updated 12/11/24 @ 20:38 by Ismael Sadler MD) Brain surgery within last 3 months Port-A-Cath in place Hypertension affecting Metastasis to brain Breast cancer Surgical History Surgical History (Updated 12/11/24 @ 20:38 by Ismael Sadler MD) H/O mastectomy Social History Social History (Updated 12/11/24 @ 20:41 by Ismael Sadler MD) Social History: Code Status: DNR Do You Feel Safe in your Home?: Yes Living arrangements: with family Occupation/Education: occupation Additional occupation/education comments: disabled Meds Home Medications and Allergies Allergies Allergy/AdvReac Type Severity Reaction Status Date / Time cef[facility] ([facility]) Allergy Unknown Unknown Verified 12/10/24 22:10 Vital Signs Vital Signs - 24 hr 12/10/24 23:09 12/11/24 05:57 12/11/24 08:00 Temperature 98.0 F Pulse Rate 61 61 Respiratory Rate 16 16 Blood Pressure 120/86 Pulse Oximetry 98 98 Oxygen Delivery Room Air Room Air 12/11/24 14:42 Temperature 97.1 F L Pulse Rate 57 L Respiratory Rate 16 Blood Pressure 129/86 Pulse Oximetry 97 Oxygen Delivery Exam Narrative: HEENT: PERRL, sclerae nonicteric, pharyngeal mucosa pink and intact. NECK: No JVD, adenopathy, or thyromegaly. CHEST: Clear to auscultation. Normal effort. HEART: NL S1/S2, regular, no murmur. ABDOMEN: BS+, soft, nontender, no mass, no bruits. EXTREMITIES: No cyanosis, edema, or clubbing. NEUROLOGIC: CN intact and symmetric to inspection. MUSCULOSKELETAL: Tone and strength symmetric. PSYCH: Alert. Oriented to person, place, and time. Assessment and Plan Assessment and plan (1) Hospice care: Code(s): Z51.5 - Encounter for palliative care Status: Acute Assessment and Plan: * Meet inpatient hospice criteria due to requiring continuous IV hydromorphone, scheduled IV dexamethasone, scheduled IV prochlorperazine for symptom management. * P.r.n. palliative regimen ordered. * Will ask hospice pharmacy to prepare for rectal administration of methadone, hydromorphone, dexamethasone, and prochlorperazine in order to facilitate discharge to home. (2) Breast cancer: Code(s): C50.919 - Malignant neoplasm of unspecified site of unspecified female breast Status: Acute (3) Metastasis to brain: Code(s): C79.31 - Secondary malignant neoplasm of brain Status: Acute
[2024-12-11] MEDS: HYDROmorphone HCL/PF (*CRX) 50 MG in SODIUM CHLORIDE 0.9% IV 95 ML IV CONT (22:40)
[2024-12-12] MEDS: PROCHLORPERAZINE EDISYLATE 10 MG/2 ML VIAL IV PUSH ×4 (06:13→23:43)
[2024-12-12] MEDS: ARTIFICIAL TEARS OPHTH SOLN 15 ML BOTTLE 1 DROP EACH EYE ×2 (06:13→17:32)
[2024-12-12 08:00] VITALS: BP 132/80; PULSE 50; PULSE 74; RESP 16; TEMP 36.9; O2SAT 96
[2024-12-12] MEDS: dexAMETHasone SOD PHOS INJ 4 MG/ML VIAL 8 MG IV PUSH ×2 (10:43→20:57)
[2024-12-12] MEDS: HYDROmorphone HCL INJ (*CRX) 2 MG/ML VIAL 0.5 MG IV PUSH ×3 (11:52→20:57)
[2024-12-12] MEDS: LORazepam INJ (*CRX) 2 MG/ML VIAL 1 MG IV PUSH ×3 (11:53→20:58)
--- NOTE | 2024-12-12 12:55 | P.PNIM_ITS ---
Progress Note: A&P Assessment and Plan (1) Hospice care: Code(s): Z51.5 - Encounter for palliative care Status: Acute Assessment and Plan: * Meet inpatient hospice criteria due to requiring continuous IV hydromorphone, scheduled IV dexamethasone, scheduled IV prochlorperazine for symptom management. * P.r.n. palliative regimen ordered. * 12/12/2024: Trial of PO methadone. Consider transition to all PO meds with rectal route as backup if PO methdone is tolerated. Likely discharge 12/13/2024. (2) Breast cancer: Code(s): C50.919 - Malignant neoplasm of unspecified site of unspecified female breast Status: Acute (3) Metastasis to brain: Code(s): C79.31 - Secondary malignant neoplasm of brain Status: Acute Subjective Date/time seen: 12/12/24 12:55 Interval history: No n/v. Headache controlled. Had some sweats and shivering around noon. Resolved now. Tolerated some sprite. Review of Systems Review of Systems: All systems reviewed & are unremarkable except as noted in HPI and below Exam Narrative: Alert. NAD. Ox4. Speech clear and coherent. Objective Data Vital Signs Vital Signs: Vital Signs - 24 hr 12/11/24 14:42 12/11/24 20:00 12/11/24 20:00 Temperature 97.1 F L 97.5 F L Pulse Rate 57 L 50 L 50 L Respiratory Rate 16 16 16 Blood Pressure 129/86 147/91 H Pulse Oximetry 97 96 96 Oxygen Delivery Room Air 12/12/24 08:00 Temperature Pulse Rate 50 L Respiratory Rate 16 Blood Pressure Pulse Oximetry 96 Oxygen Delivery Room Air Intake/Output Intake/Output: Intake & Output 12/09/24 12/10/24 12/11/24 12/12/24 23:59 23:59 23:59 23:59 Intake Total 12 0 Balance 12 0 Meds/Results Medications: Active Medications Generic Name Dose Route Start Last Admin Trade Name Freq PRN Reason Stop Dose Admin Acetaminophen 650 mg 12/10/24 22:12 Acetaminophen 650 Mg Suppository RECTAL Q4H PRN Mild Pain (1-3) or Fever Artificial Tears 1 drop 12/11/24 07:00 12/12/24 06:13 Artificial Tears Ophth Soln 15 Ml Bottle EACH EYE 1 drop Q12H ARYA Administration Artificial Tears 1 drop 12/10/24 22:07 Artificial Tears Ophth Soln 15 Ml Bottle EACH EYE Q2H PRN Dry Eye(s) Bisacodyl 10 mg 12/10/24 22:12 Bisacodyl 10 Mg Suppository RECTAL QAM PRN Constipation Dexamethasone Sodium Phosphate 8 mg 12/10/24 22:25 12/12/24 10:43 Dexamethasone Sod Phos Inj 4 Mg/Ml Vial IV PUSH 8 mg Q12HR ARYA Administration Glycopyrrolate 0.1 mg 12/10/24 22:07 Glycopyrrolate Inj (*Sp) 0.2 Mg/Ml Vial IV PUSH Q4H PRN Secretions Hydromorphone HCl 0.5 mg 12/10/24 22:02 12/12/24 11:52 Hydromorphone Hcl Inj (*Crx) 2 Mg/Ml Vial IV PUSH 0.5 mg Q1H PRN Administration Pain Rated 7-10 Hydromorphone HCl 50 mg/ 100 mls @ 0.5 mls/hr 12/10/24 22:05 12/11/24 22:40 Sodium Chloride IV CONT 0.25 mg/hr .Q24H ARYA 0.5 mls/hr Administration 0.25 MG/HR Lorazepam 1 mg 12/11/24 10:08 12/12/24 11:53 Lorazepam Inj (*Crx) 2 Mg/Ml Vial IV PUSH 1 mg Q4H PRN Administration Anxiety Prochlorperazine Edisylate 10 mg 12/11/24 18:00 12/12/24 06:13 Prochlorperazine Edisylate 10 Mg/2 Ml Vial IV PUSH 10 mg Q6HR ARYA Administration Promethazine HCl 12.5 mg 12/10/24 22:07 Promethazine Hcl 25 Mg/Ml Ampul IV PUSH Q4H PRN Nausea And Vomiting
[2024-12-12] MEDS: methADONE HCL (*CRX) 10 MG TABLET PO ×2 (14:10→20:56)
[2024-12-12 20:00] VITALS: BP 128/85; PULSE 94; RESP 20; TEMP 35.8; O2SAT 97
[2024-12-13] MEDS: LORazepam INJ (*CRX) 2 MG/ML VIAL 1 MG IV PUSH ×2 (06:34→11:57)
[2024-12-13] MEDS: PROCHLORPERAZINE EDISYLATE 10 MG/2 ML VIAL IV PUSH (06:34)
[2024-12-13] MEDS: HYDROmorphone HCL INJ (*CRX) 2 MG/ML VIAL 0.5 MG IV PUSH ×3 (06:34→13:37)
[2024-12-13] MEDS: ARTIFICIAL TEARS OPHTH SOLN 15 ML BOTTLE 1 DROP EACH EYE (06:53)
[2024-12-13 08:00] VITALS: BP 135/66; PULSE 76; PULSE 94; RESP 18; RESP 20; TEMP 36.1; O2SAT 94; O2SAT 97
[2024-12-13] MEDS: dexAMETHasone SOD PHOS INJ 4 MG/ML VIAL 8 MG IV PUSH (08:31)
[2024-12-13] MEDS: methADONE HCL (*CRX) 10 MG TABLET PO (08:31)
--- NOTE | 2024-12-13 10:33 | P.DS_ITS ---
DS: Admitting Diagnosis Discharge Date 12/13/2024 Admitting Diagnosis Metastatic Breast Cancer with Uncontrolled Headache, Nausea, and Emesis DS: Discharge Diagnosis Discharge Diagnosis (1) Hospice care: Code(s): Z51.5 - Encounter for palliative care Status: Acute Assessment and Plan: * Meet inpatient hospice criteria due to requiring continuous IV hydromorphone, scheduled IV dexamethasone, scheduled IV prochlorperazine for symptom management. * P.r.n. palliative regimen ordered. * 12/12/2024: Trial of PO methadone. Consider transition to all PO meds with rectal route as backup if PO methdone is tolerated. Likely discharge 12/13/2024. * 12/13/2024: Required only two prn doses of hydromorphone since starting po methadone. Would like to go home. (2) Breast cancer: Code(s): C50.919 - Malignant neoplasm of unspecified site of unspecified female breast Status: Acute (3) Metastasis to brain: Code(s): C79.31 - Secondary malignant neoplasm of brain Status: Acute DS: Summary Hospital Course Reason for hospitalization: Uncontrolled nausea vomiting Hospital Course: This unfortunate 41-year-old female was admitted December 10 in the evening due to severe headache and uncontrolled nausea vomiting. She had been on outpatient hospice service for about 1 month due to metastatic breast cancer with brain metastases. Due to nausea vomiting she had been unable to tolerate her scheduled a hydromorphone and anti medic doses. Therefore she was admitted [facility] and started on scheduled IV prochlorperazine continuous IV hydromorphone p.r.n. IV Ativan and promethazine as well as scheduled dexamethasone. She tolerated these well with resolution of her symptoms over the 1st 24 hours of admission. She was tolerating clear liquids by day prior to discharge. She was transitioned oral methadone and tolerated that well and required only 2 additional doses of hydromorphone during the 1st 18 or so hours after initiating oral methadone. By day of discharge she was tolerating clear liquids but had not attempted food due to lack of appetite. She was up and about the room independently. She was alert and oriented x4. She wished to go home with her parents again. Time Spent with Patient Time attestation: Total time spent providing and/or coordinating discharge services: Exam Narrative: Alert. NAD. Ox4. Speech clear and coherent. Discharge Plan Discharge Discharging Clinician: Ismael Sadler Patient Disposition: Hospice - Home Activity: no straining, no driving and as tolerated Diet: as tolerated and regular Patient Language: Amharic Stand Alone Forms: General Discharge Information Discharge Medications: New methadone 10 mg Tablet 10 mg PO Q12H Qty: 20 0RF dexamethasone 4 mg tablet 8 mg PO BID Qty: 30 0RF hydromorphone 8 mg tablet 8 mg PO Q4H PRN (Reason: pain) Qty: 30 0RF prochlorperazine maleate 10 mg tablet 10 mg PO Q6H Qty: 60 0RF lorazepam 1 mg tablet 1 mg PO Q4H PRN (Reason: anxiety) Qty: 30 0RF promethazine 25 mg tablet 25 mg PO Q6H PRN (Reason: nausea and vomiting) Qty: 30 0RF Date of admission: 12/10/24 22:00 Primary Care Provider: UNKNOWN,DOCTOR Admitting Provider: Ismael Sadler Interventions: Discharge Disposition Last Done: 12/13/24 14:20 Attending physician on admission: Ismael Sadler Condition: Terminal
== END 2024-12-13 14:45 | disposition hospice, home (50) | DRG 951 ==
PROVIDERS: Admitting Provider Internal Medicine; Visit Provider Internal Medicine
DX: Z51.5 Encounter for palliative care (principal); C79.31 Secondary malignant neoplasm of brain; C50.919 Malignant neoplasm of unspecified site of unspecified female breast; Z66 Do not resuscitate
CPT/HCPCS: A9270; J0780; J1100; J1171; J1642; J2060